=== PATIENT | male | born 1975 | race Caucasian/White ===

== ENCOUNTER 2023-09-13 08:51 | Outpatient (REF) | payer OTHER, SELFPAY ==
--- NOTE | ~2023-09-13 | MR_ITS ---
MR CERVICAL SPINE WITHOUT CONTRAST CLINICAL INFORMATION: Pain for 3 months/cervicalgia. COMPARISON: None available. TECHNIQUE: MRI of the cervical spine was obtained using routine sequences without contrast. FINDINGS: There is slight retrosubluxation of C6 on C7. Cervical alignment is otherwise normal. The vertebral body heights are maintained. Moderate disc volume loss at C6-C7. The remaining disc volumes are preserved. There is no bone marrow edema. There are no acute fractures. Craniocervical junction is unremarkable. Cervical arterial flow voids are maintained. There are no significant extraspinal soft tissue findings. Partially imaged posterior fossa is unremarkable. C2-C3: Disc contour is normal. No central canal stenosis and no foraminal stenosis. C3-C4: Slight annular disc bulge. Left greater then right facet arthropathy. No central canal stenosis and no significant foraminal stenosis. C4-C5: Uncovertebral joint spurring and facet arthropathy result in moderate right and mild left foraminal stenosis. Slight annular disc bulge. No central canal stenosis. C5-C6: Slight annular disc bulge. No central canal stenosis. Uncovertebral joint spurring and facet arthropathy result in severe left and moderate right foraminal stenosis with compression of the exiting left C6 nerve root. C6-C7: A shallow disc protrusion and ligamentum flavum thickening result in moderate central canal stenosis and slight flattening of the cord. Uncovertebral joint spurring and facet arthropathy result in severe bilateral foraminal stenosis with compression of the exiting C7 nerve roots bilaterally. C7-T1: Posterior disc contour is normal. No central canal stenosis and no foraminal stenosis. MR/MR cervical spine wo con IMPRESSION: - At C6-C7, a shallow disc protrusion results in moderate central canal stenosis and flattening of the cord. Spondylitic changes at C6-C7 result in severe bilateral foraminal stenosis with compression of the exiting C7 nerve roots bilaterally. - At C5-C6, multifactorial degenerative changes result in severe left and moderate right foraminal stenosis with compression of the exiting left C6 nerve root. - At C4-C5, spondylitic changes result in moderate right-sided foraminal stenosis.
== END 2023-09-13 08:52 | disposition home or self-care (01) ==
LOC: HO.MRI 08:51
PROVIDERS: PCP Family Medicine; Visit Provider Family Medicine
DX: M54.2 Cervicalgia (principal)
CPT/HCPCS: 72141

== ENCOUNTER 2023-09-21 09:28 | Outpatient (AMB) | payer OTHER, SELFPAY ==
--- NOTE | 2023-09-21 09:35 | A.SPINEOV_ITS ---
Intake Visit Reasons: cervicalgia Intake Note: Mr. Finch is here today c/o neck pain. with numbness. [employer] Supervisor Required: No Allergies No Known Allergies Allergy (Verified 09/21/23 09:37) Assessment & Plan Assessment & Plan (1) Finger numbness: Code(s): R20.0 - Anesthesia of skin Category: Medical Plan Dear Caroline Christian, Thank you for referring Vasquez to our office today. 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 He comes in today with a chief complaint of finger numbness (specifically 3rd / 4th phalanges) and some intermittent burning pains in his left tricep. He reports that this began without any inciting incident 4 months ago. He does report that this has affected him most in the gym, causing him to feel like he has some form of weakness on the left side when attempting to lift weight. His s ymptoms do not worsen with use of his hand / arm and do not worsen at night. He reports that tilting his head to the left side exacerbates his symptoms. He denies any exacerbation with prolonged use of the left hand/arm, and denies any neck pain / shooting pains down his arm. So far he has tried a short course of prednisone, which he feels was helpful, and also was prescribed meloxicam which provided modest relief. He reported he has not been to physical therapy, has never engaged in acupuncture, has never seen a chiropractor and has not attempted cortisone injections. PMH: Appendectomy, seasonal allergies. Social hx: Patient does not smoke, reports no substance use. Medications: Fluticasone spray. Allergies: NKDA. Physical exam: The patient has 5/5 strength in his upper and lower extremities. He reports some sensational changes in his left 3/4 phalanges. His sensation is otherwise intact. His reflexes are 2+ intact diffusely. Weakly (+) Spurling's. (-) Portillo's, (-) clonus, (-) tinel's at wrist & elbow. He ambulates well and rises from a seated position without difficulty. Imaging review: MRI of the cervical spine completed here at [facility] shows normal spondylosis of the cervical spine, with a small posterior disc protrusion at C6-7. This disc protrusion is causing what I would call mild- moderate central canal and bilateral foraminal stenosis. No signficiant difference in left vs. right impingement. Impression: Juno is a pleasant 47-year-old male who comes in today with a chief complaint of intermittent finger numbness on the left side accompanied by an intermittent burning sensation in his left tricep. It is difficult to ascertain what his primary symptom generator is at this time. It is very likely that he may have a simple brachial plexus impingement which will work out with time. It is also possible that he is having some low-grade radicular symptoms from his low grade impingement at C6-7. I think it is less likely that he has a cubital or carpal tunnel syndrome as his symptoms are not any worse at night and do not worsen with the use of the affected arm. After showing the patient his MRI imaging, and discussing his symptoms, I recommended we send him for a electromyogram to determine the causative agent of his neurological symptoms, as we can then best determine how to treat them (physical therapy vs. cortisone injections vs. surgery). The patient seems somewhat averse to this suggestion reported he would prefer to discuss this with his primary care physician. He was encouraged to follow up with us at his convenience if he would like us to send him for an electromyogram with the Neurology Service here at [facility]. Thank you for allowing us to care for your patient. The total time spent with this visit with this patient was 45 minutes reviewing history, physical exam, MRI imaging review, and implementation of treatment plan or further diagnostic testing Gene Gaston MD,PhD [facility] Coding Level of Care Code New Pt Level 4 (35264) Diagnoses Finger numbness R20.0
== END 2023-09-21 10:15 | disposition home or self-care (01) ==
PROVIDERS: PCP Family Medicine; Referring Provider Family Medicine; Visit Provider Physician Assistant
DX: R20.0 Anesthesia of skin (principal)
CPT/HCPCS: 99204

== ENCOUNTER → 2023-09-21 09:28 | Outpatient (BNVA) | payer OTHER, SELFPAY | PROVIDERS: PCP Family Medicine; Visit Provider Physician Assistant ==